=== PATIENT | male | born 1970 | race Caucasian/White ===

== ENCOUNTER 2016-08-23 10:55 | Emergency (ER) | payer BC, OTHER ==
[~2016-08-23] VITALS: Ht 182.9 cm; Wt 113.4 kg
--- NOTE | 2016-08-23 11:07 | ED Chest Pain ---
General Chief Complaint: Chest Pain Stated Complaint: CHEST/BACK PAIN Source: patient, RN notes reviewed Exam Limitations: no limitations History of Present Illness Time seen by provider: 11:10 Initial Comments Acute onset of posterior left back/rib pain p/ coughing. Timing/Duration: 1 hour, constant Severity/Quality: moderate, sharp, stabbing Location: other (posterior left costochondral pain) Radiation: no radiation Activities at Onset: other (coughing) Modifying Factors: worse with breathing, worse with coughing, worse with movement ASA po SCHOOL OFFICE MANAGER: No NTG SL SCHOOL OFFICE MANAGER: No Associated Symptoms: denies symptoms Allergies and Home Medications Allergies Coded Allergies: No Known Drug Allergies (Unverified , 08/23/16) Home Medications Meloxicam 7.5 Mg Tablet, 7.5 MG PO Q12H PRN for BACK/CHEST PAIN, #30 Ref 0 Prescribed by: LOTUS FELIX on 08/23/16 1335 [BP medication] , (Reported) Review of Systems Constitutional: see HPI Musculoskeletal: see HPI, back pain (left posterior rib pain) All Other Systems Reviewed Negative Unless Noted: Yes (Negative excepted noted.) Past Qiueeyt-Vvyazr-Ihqxat Hx Patient Social History Alcohol Use: Denies Use Recreational Drug Use: No Smoking Status: Never a Smoker 2nd Hand Smoke Exposure: No Recent Hopitalizations: No Immunizations Up To Date Tetanus Booster (TDap): Less than 5yrs PED Vaccines UTD: Yes Seasonal Allergies Seasonal Allergies: Yes Surgeries HX Surgeries: No Respiratory Hx Respiratory Disorders: No Cardiovascular Hx Cardiac Disorders: Yes Cardiac Disorders: Hypertension Neurological Hx Neurological Disorders: No Reproductive System Hx Reproductive Disorders: No Genitourinary Hx Genitourinary Disorders: No Gastrointestinal Hx Gastrointestinal Disorders: No Musculoskeletal Hx Musculoskeletal Disorders: No Endocrine Hx Endocrine Disorders: No HEENT HX ENT Disorders: No Cancer Hx Cancer: No Psychosocial Hx Psychiatric Problems: No Integumentary HX Skin/Integumentary Disorder: No Blood Transfusions Hx Blood Disorders: No Physical Exam Vital Signs Capillary Refill : Less Than 3 Seconds General Appearance: No Apparent Distress, WD/WN, Obese Neck: Normal Inspection Respiratory: Lungs Clear, No Respiratory Distress Cardiovascular: Regular Rate, Rhythm, Other ((+) left posterior costochondral pain) Rectal: Deferred Neurologic/Psychiatric: Alert, Oriented x3, No Motor/Sensory Deficits Skin: Warm/Dry Focused Exam Lactic Acid Level Progress/Results/Core Measures Results/Orders Lab Results Laboratory Tests Test 08/23/16 11:09 08/23/16 13:09 Range/Units White Blood Count 10.6 4.3-11.0 10^3/uL Red Blood Count 5.35 4.35-5.85 10^6/uL Hemoglobin 16.5 13.3-17.7 G/DL Hematocrit 46 40-54 % Mean Corpuscular Volume 87 80-99 FL Mean Corpuscular Hemoglobin 31 25-34 PG Mean Corpuscular Hemoglobin Concent 36 32-36 G/DL Red Cell Distribution Width 12.5 10.0-14.5 % Platelet Count 356 130-400 10^3/uL Mean Platelet Volume 9.9 7.4-10.4 FL Neutrophils (%) (Auto) 61 42-75 % Lymphocytes (%) (Auto) 25 12-44 % Monocytes (%) (Auto) 11 0-12 % Eosinophils (%) (Auto) 2 0-10 % Basophils (%) (Auto) 1 0-10 % Neutrophils # (Auto) 6.5 1.8-7.8 X 10^3 Lymphocytes # (Auto) 2.7 1.0-4.0 X 10^3 Monocytes # (Auto) 1.1 H 0.0-1.0 X 10^3 Eosinophils # (Auto) 0.2 0.0-0.3 10^3/uL Basophils # (Auto) 0.1 0.0-0.1 10^3/uL D-Dimer 0.43 0.00-0.49 UG/ML Sodium Level 140 135-145 MMOL/L Potassium Level 3.6 3.6-5.0 MMOL/L Chloride Level 103 98-107 MMOL/L Carbon Dioxide Level 24 21-32 MMOL/L Anion Gap 13 5-14 MMOL/L Blood Urea Nitrogen 15 7-18 MG/DL Creatinine 0.83 0.60-1.30 MG/DL Estimat Glomerular Filtration Rate > 60 BUN/Creatinine Ratio 18 Glucose Level 152 H 70-105 MG/DL Calcium Level 9.4 8.5-10.1 MG/DL Magnesium Level 2.1 1.8-2.4 MG/DL Total Bilirubin 1.5 H 0.1-1.0 MG/DL Aspartate Amino Transf (AST/SGOT) 32 5-34 U/L Alanine Aminotransferase (ALT/SGPT) 73 H 0-55 U/L Alkaline Phosphatase 67 40-136 U/L Troponin I < 0.30 <0.30 NG/ML B-Type Natriuretic Peptide < 10.0 <100.0 PG/ML Total Protein 7.7 6.4-8.2 G/DL Albumin 4.8 H 3.2-4.5 G/DL Lipase 35 8-78 U/L Urine Color YELLOW Urine Clarity CLEAR Urine pH 7 5-9 Urine Specific Rosine 1.010 L 1.016-1.022 Urine Protein NEGATIVE NEGATIVE Urine Glucose (UA) NEGATIVE NEGATIVE Urine Ketones NEGATIVE NEGATIVE Urine Nitrite NEGATIVE NEGATIVE Urine Bilirubin NEGATIVE NEGATIVE Urine Urobilinogen NORMAL NORMAL MG/DL Urine Leukocyte Esterase NEGATIVE NEGATIVE Urine RBC (Auto) NEGATIVE NEGATIVE Urine RBC RARE /HPF Urine WBC NONE /HPF Urine Crystals NONE /LPF Urine Bacteria NEGATIVE /HPF Urine Casts NONE /LPF Urine Mucus NEGATIVE /LPF Urine Culture Indicated NO My Orders Orders - LOTUS FELIX DO Saline Lock/Iv-Start (08/23/16 11:07) Ekg Tracing (08/23/16 11:07) BNP (08/23/16 11:07) Cbc With Automated Diff (08/23/16 11:07) Comprehensive Metabolic Panel (08/23/16 11:07) Fibrin Degradation Products (08/23/16 11:07) Lipase (08/23/16 11:07) Magnesium (08/23/16 11:07) Troponin I (08/23/16 11:07) Ua Culture If Indicated (08/23/16 11:07) Chest Pa/Lat (2 View) (08/23/16 11:07) Ct Chest Wo (08/23/16 12:35) Ct Thoracic Spine Wo (08/23/16 12:35) Dexamethasone Pf Injection (Decadron Pf (08/23/16 13:45) Ketorolac Injection (Toradol Injection) (08/23/16 13:45) Ketorolac Injection (Toradol Injection) (08/23/16 13:50) Dexamethasone Pf Injection (Decadron Pf (08/23/16 13:50) Vital Signs/I&O ECG Initial ECG Impression Date: Aug 23, 2016 Initial ECG Impression Time: 11:03 Initial ECG Rate: 103 Initial ECG Rhythm: S.Tach Initial ECG Impression: Nonspecific Changes (Probable MILLER; incomplete RBBB) Initial ECG Comparisson: No Previous ECG Available Departure Impression Impression: Primary Impression: Subluxation of costochondral joint Disposition: HOME, SELF-CARE Condition: Stable Departure-Patient Inst. Decision time for Depature: 13:33 Referrals: NO,LOCAL PHYSICIAN (PCP/Family) Primary Care Physician Patient Instructions: Costochondritis (DC) Add. Discharge Instructions: All discharge instructions reviewed with patient and/or family. Voiced understanding. ALSO RECOMMEND FOLLOW UP WITH EITHER YOUR PCP, OR ONE OF THE GENERAL [facility]ARM[facility] REGARDING THE CALCIFICATIONS ON YOUR CORONARY ARTERIES NOTED ON YOUR CT TODAY. Scripts Meloxicam (Mobic) 7.5 Mg Tablet 7.5 MG PO Q12H Y for BACK/CHEST PAIN, #30 TAB 0 Refills Prov: LOTUS FELIX DO 08/23/16 LOTUS FELIX DO Aug 23, 2016 11:07
[2016-08-23] MEDS ORDERED: BP medication (11:10)
[2016-08-23 11:18] LABS: BASOPHILS # (AUTO) 0.1 10^3/uL (0.0-0.1); BASOPHILS % (AUTO) 1 % (0-10); EOSINOPHILS # (AUTO) 0.2 10^3/uL (0.0-0.3); EOSINOPHILS % (AUTO) 2 % (0-10); LYMPHOCYTES # (AUTO) 2.7 X 10^3 (1.0-4.0); LYMPHOCYTES % (AUTO) 25 % (12-44); MEAN CORPUSCULAR HEMOGLOBIN 31 PG (25-34); MEAN CORPUSCULAR HGB CONC 36 G/DL (32-36); MEAN CORPUSCULAR VOLUME 87 FL (80-99); MEAN PLATELET VOLUME 9.9 FL (7.4-10.4); MONOCYTES # (AUTO) 1.1 X 10^3 (0.0-1.0); MONOCYTES % (AUTO) 11 % (0-12); NEUTROPHILS # (AUTO) 6.5 X 10^3 (1.8-7.8); NEUTROPHILS % (AUTO) 61 % (42-75); PLATELET COUNT 356 10^3/uL (130-400); RED BLOOD COUNT 5.35 10^6/uL (4.35-5.85); RED CELL DISTRIBUTION WIDTH 12.5 % (10.0-14.5); WHITE BLOOD COUNT 10.6 10^3/uL (4.3-11.0)
[2016-08-23 11:37] LABS: ALANINE AMINOTRANSFERASE 73 U/L (0-55); ALBUMIN 4.8 G/DL (3.2-4.5); ANION GAP 13 MMOL/L (5-14); ASPARTATE AMINO TRANSFERASE 32 U/L (5-34); BILIRUBIN,TOTAL 1.5 MG/DL (0.1-1.0); BLOOD UREA NITROGEN 15 MG/DL (7-18); BUN/CREATININE RATIO 18; CALCIUM 9.4 MG/DL (8.5-10.1); CARBON DIOXIDE 24 MMOL/L (21-32); CHLORIDE 103 MMOL/L (98-107); CREATININE SERUM 0.83 MG/DL (0.60-1.30); GFR ESTIMATED > 60; GLUCOSE 152 MG/DL (70-105); LIPASE 35 U/L (8-78); MAGNESIUM 2.1 MG/DL (1.8-2.4); POTASSIUM 3.6 MMOL/L (3.6-5.0); SODIUM 140 MMOL/L (135-145); TOTAL PROTEIN 7.7 G/DL (6.4-8.2)
[2016-08-23 11:43] LABS: TROPONIN I < 0.30 NG/ML (<0.30)
--- NOTE | 2016-08-23 11:51 | Diagnostic Imaging Report ---
EXAMINATION: PA and lateral views of the chest. INDICATION: Chest pain and tightness. Cough. FINDINGS: The lungs are clear. The heart size is normal. No effusion or pneumothorax. The mediastinum and flash appear unremarkable. IMPRESSION: Unremarkable exam. Dictated by: Dictated on workstation # [id number]
--- NOTE | 2016-08-23 13:11 | Diagnostic Imaging Report ---
PROCEDURE: CT chest without contrast. TECHNIQUE: Multiple contiguous axial images were obtained through the chest without the use of intravenous contrast. INDICATION: Recent fall. Posterior left rib pain. COMPARISON: Chest radiograph earlier same day. FINDINGS: Evaluation of the bony structures demonstrates no acute abnormalities. There is no evidence of acute fracture or dislocation. Cardiomediastinal structures show normal heart size. There is no large pericardial effusion. No pathologically enlarged or morphologically abnormal adenopathy is seen within the mediastinum, flash, or axilla. There is some faint wispiness within the superior anterior mediastinum which may be on the basis of some residual thyroid tissue. Note is also made of calcified coronary atherosclerosis. Evaluation of the lung payne demonstrates no focal consolidation, pleural effusion, or pneumothorax. Benign calcified granuloma is noted within the posterior margins of the right upper chest along the superior margins of the major fissure. No other suspicious pulmonary nodules or masses are identified. Included views of the upper abdomen show diffuse hyperdense appearance to the hepatic parenchyma consistent with background of hepatic steatosis. IMPRESSION: 1. No acute cardiopulmonary process. 2. Calcified coronary artery atherosclerosis. Correlation for risk factors is recommended. 3. Hepatic steatosis. Dictated by: Dictated on workstation # [id number]
[2016-08-23 13:15] LABS: BILIRUBIN,URINE NEGATIVE (NEGATIVE); KETONES,URINE NEGATIVE (NEGATIVE); LEUKOCYTE ESTERASE ,URINE NEGATIVE (NEGATIVE); NITRITE,URINE NEGATIVE (NEGATIVE); PH,URINE 7 (5-9); PROTEIN,URINE NEGATIVE (NEGATIVE); UROBILINOGEN,URINE NORMAL (NORMAL)
--- NOTE | 2016-08-23 13:24 | Diagnostic Imaging Report ---
PROCEDURE: CT thoracic spine without contrast. TECHNIQUE: Multiple axial computerized tomography images were obtained from the base of the thoracic spine to the vertex without intravenous contrast. INDICATION: Fall. Back pain. COMPARISON: CT chest from same day. FINDINGS: Radiation / Chemistry Technician views and reformats demonstrate normal anatomic alignment of the thoracic spine. The vertebral bodies are of normal height and contour. There is no evidence of acute fracture or dislocation. No acute compression fracture is seen. No large prevertebral paraspinal soft tissue masses are seen. The disc spaces are well maintained. No bony fragments are seen in the central canal. No areas of bony central canal or foraminal stenosis are seen. Limited views of the lungs demonstrate no focal lesions. IMPRESSION: 1. No evidence of fracture or dislocation of the thoracic spine. Please note that CT scan is a less sensitive modality to evaluate epidural hematoma or cord injury. If this is a clinical concern further evaluation with MRI of the thoracic spine could be obtained. Dictated by: Dictated on workstation # [id number]
[2016-08-23] MEDS ORDERED: MELO-170 PO (13:35)
[2016-08-23] MEDS ORDERED: DEXAMETHASONE PF 10 MG/ML (DECADRON) VIAL IV ONE (13:45)
[2016-08-23] MEDS ORDERED: KETOROLAC 30 MG/ML VIAL IVP ONE (13:45)
[2016-08-23] MEDS ORDERED: KETOROLAC 30 MG/ML VIAL ONE (13:50)
[2016-08-23] MEDS ORDERED: DEXAMETHASONE PF 10 MG/ML (DECADRON) VIAL ONE (13:50)
[2016-08-23 13:57] VITALS: BP 143/81
== END 2016-08-23 13:57 | disposition home or self-care (01) ==
LOC: ER 10:57
DX: S23.29XA Dislocation of other parts of thorax, initial encounter (principal); X58.XXXA Exposure to other specified factors, initial encounter; Y99.8 Other external cause status
CPT/HCPCS: 36415; 71020; 71250; 72128; 80053; 81000; 83690; 83735; 83880; 84484; 85025; 85379; 93005